=== PATIENT | male | born 1950 | race Caucasian/White ===

== ENCOUNTER 2016-09-10 01:44 | Emergency (ER) | payer MEDICARE, BC ==
--- NOTE | 2016-09-10 05:34 | ER ---
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 Denies any vomiting, hematuria or prior history of kidney stone. Exam remarkable for nontoxic, afebrile male with benign exam. Normal CBC, lactic acid, CRP, CMP except for glucose 146. Urine does show [address] abdomen and pelvis shows multiple nonobstructive kidney stones left greater than right with 5 mm obstructive proximal left ureteral stone with mild hydro. The patient ultimately consented to Toradol 30 mg IV push, but declined Zofran or Dilaudid. Accepted Flomax 0.4 mg p.o. Home with Percocet 5/325, 1 to 2 q.i.d. p.r.n. #30 plus 6, Flomax 0.4 mg daily p.r.n. renal colic #30. Strain urine. Follow up Dr. Varela or Tanvi this week. Mark Gonzáles MD/ federico JOB #: [id number] CC: Mark Gonzáles MD, Attending Physician Bari Sales MD, Family Physician Bari Sales MD
== END 2016-09-10 03:25 | disposition home or self-care (01) ==
LOC: ER 01:44
DX: N13.2 Hydronephrosis with renal and ureteral calculous obstruction (principal); E11.9 Type 2 diabetes mellitus without complications; I10 Essential (primary) hypertension; F17.210 Nicotine dependence, cigarettes, uncomplicated; Z91.040 Latex allergy status

== ENCOUNTER 2016-09-14 19:32 | Emergency (ER) | payer MEDICARE, BC ==
--- NOTE | 2016-09-18 13:52 | ER ---
ADMIT: 09/14/2016 RM/LOC: ER [facility] MR#: [id number] [address] [address] GERRYDANIELE [address] [place] [address] Emergency Room Report SEX: M AGE: 66 : 1950 DATE: 09/14/2016 CHIEF COMPLAINT: Urinary retention. HISTORY OF PRESENT ILLNESS: A 66-year-old male, presents to the ER with 4 hours of inability to urinate. The patient states he has cystoscopy completed with Dr. Tinajero at noon today. Reports Dr. Mccoy had been told him he had some significant bleeding about the prostate. He states after the procedure he was passing large clots and bloody urine. However since 1600 hours, he has been able to urinate. States he has had significant blood in the urine. He has had some penile pain secondary to passing the clots. He has some suprapubic tenderness secondary to the pain. Otherwise, well. No fever, nausea or vomiting, or chest pain. PAST MEDICAL HISTORY: Diabetes and enlarged prostate. MEDICATIONS: Currently on: 1. Cipro. 2. Metformin. COURSE IN THE EMERGENCY ROOM: The patient was seen and examined. GENERAL: Afebrile, nontoxic. He is in a mild amount of distress secondary to pain. He has significant suprapubic tenderness and guarding. No upper abdominal pain. GENITOURINARY: Normal inspection. He is uncircumcised. No pain in testicle to palpation. CHEST: Nontender. Lungs are clear. EXTREMITIES: Nontender. No pedal edema. SKIN: Warm and dry. Alert, oriented, cooperative with exam. I did have nursing place a Bradshaw catheter. They did do irrigation. They were able to evacuate several large clots. Bradshaw catheter was placed. Urine is ADMIT: 09/14/2016 RM/LOC: ER [facility] MR#: [id number] [id number] [place], [place] [address] DANIELE GARRETT [address] [place] [address] Emergency Room Report SEX: M AGE: 66 : 1950 now free-flowing. States he is feeling improved, ready for discharge. IMPRESSION: 1. Acute urinary retention, status post cystoscopy. 2. Benign prostatic hypertrophy. DISPOSITION: The patient was discharged with a Bradshaw catheter. He was provided teaching and education on this. He is to keep this until he could follow with Dr. Tinajero on Saturday. Increase fluids as tolerated. Continue home medications. Return with worsening signs or symptoms. SUJEY Rowley / Titi Alex MD / modl JOB #: [id number] CC: Titi Alex MD, Attending Physician Bari Sales MD, Family Physician Donaldo Tinajero MD
== END 2016-09-14 21:33 | disposition home or self-care (01) ==
LOC: ER 19:32
DX: N40.1 Benign prostatic hyperplasia with lower urinary tract symptoms (principal); R33.8 Other retention of urine; E11.9 Type 2 diabetes mellitus without complications; Z79.899 Other long term (current) drug therapy

== ENCOUNTER 2016-09-15 10:32 | Emergency (ER) | payer MEDICARE, BC ==
--- NOTE | 2016-09-18 13:52 | ER ---
ADMIT: 09/15/2016 RM/LOC: ER [facility] MR#: [id number] [address] [place], [place] [address] GERRY DANIELE Hester [address] [place] [address] Emergency Room Report SEX: M AGE: 66 : 1950 DATE: 09/15/2016 CHIEF COMPLAINT: Bradshaw catheter problem. HISTORY OF PRESENT ILLNESS: This is a 66-year-old male, who presents to the ER with concerns that his Bradshaw could be obstructed with a blood clot. He was in the ER last evening. He is status post cystoscopy with lithotripsy for a kidney stone on the left. Last night, he came in with inability to urinate. A Bradshaw catheter was placed and the clots were evacuated, he was sent home. He states he did well throughout the night. This morning, he was having decreased output through the catheter and noticed that fluids were leaking around the catheter tubing. He did phone Dr. Tinajero this morning who recommended he come into the ER for repeat irrigation. He states he does have pain over the left flank similar to when he had his kidney stone rates as a 10/10. COURSE IN THE EMERGENCY DEPARTMENT: GENERAL: The patient seen and examined. He is afebrile. In a mild amount of distress. ABDOMEN: Soft. He does have some tenderness over the left flank. Otherwise, unremarkable. We did proceed to irrigate bladder with Bradshaw catheter and several clots were removed. He was observed. Bradshaw catheter appears to be functioning, he is draining urine. He was given 15 Toradol IV as well as Zofran for IV. Bladder scan initially showed 80 mL as above. He is now draining in the Bradshaw freely. IMPRESSION: Urinary retention, status post cystoscopy. DISPOSITION: The patient was discharged to home. Increase fluids. Continue home medications. Keep catheter in until he follows up with Dr. Tinajero on Saturday. Certainly return with any worsening signs or symptoms. SUJEY Rowley / Daryl Juarez MD / federico JOB #: [id number] CC: Daryl Juarez MD, Attending Physician Bari Sales MD, Family Physician R Enzo Tinajero MD
== END 2016-09-15 12:50 | disposition home or self-care (01) ==
LOC: ER 10:32
DX: T83.9XXA Unspecified complication of genitourinary prosthetic device, implant and graft, initial encounter (principal); R33.8 Other retention of urine; I10 Essential (primary) hypertension; E11.9 Type 2 diabetes mellitus without complications; Z87.442 Personal history of urinary calculi; Z79.899 Other long term (current) drug therapy

== ENCOUNTER 2016-09-16 10:26 | Emergency (ER) | payer MEDICARE, BC ==
--- NOTE | 2016-09-18 13:52 | ER ---
ADMIT: 09/16/2016 RM/LOC: ER [facility] [place] MR#: [id number] [address] [address] DANIELE GARRETT [address] [place] [address] Emergency Room Report SEX: M AGE: 66 : 1950 DATE: 09/16/2016 CHIEF COMPLAINT: Catheter not draining. HISTORY OF PRESENT ILLNESS: A 66-year-old male, who presents with continued problems after his cystoscopy done on Saturday. He states he had lithotripsy with cystoscopy completed on Saturday. He was evaluated in the ER later that night for urinary retention. A Bradshaw catheter was placed. He returns out any morning with concerns of his catheter was occluded. He was irrigated. Discharged to follow up. He returns today complaining again that his catheter is not draining as persistent left flank pain. Severe in nature. Continues medications as prescribed. Dr. Juarez originally saw this patient handed off to me. CT colic was performed, which shows persistent fragmented stone in the proximal left ureter without resolution of the hydronephrosis. While in the department, he did get saline as well as Zofran and Dilaudid for pain control. I did phone Dr. Tinajero, made him aware of the patient's situation. We will see him tomorrow. I did send him out with a script for B and O suppositories one to two times daily as needed for pain. He is to continue his pain medications as prescribed by Dr. Tinajero as needed. Questions sought and answered to the best of my ability and the patient's satisfaction. Discharged home in stable condition. SUJEY Rowley / Daryl Juarez MD / federico JOB #: [id number] CC: Daryl Juarez MD, Attending Physician Bari Sales MD, Family Physician Donaldo Tinajero MD
== END 2016-09-16 13:23 | disposition home or self-care (01) ==
LOC: ER 10:26
DX: N13.2 Hydronephrosis with renal and ureteral calculous obstruction (principal); E11.9 Type 2 diabetes mellitus without complications; I10 Essential (primary) hypertension; Z79.84 Long term (current) use of oral hypoglycemic drugs; Z79.82 Long term (current) use of aspirin; Z79.899 Other long term (current) drug therapy